=== PATIENT | male | born 1955 | race Caucasian/White ===

== ENCOUNTER 2023-01-28 13:35 | Outpatient (REF) | payer MEDICARE, MEDICAID, SELFPAY ==
[2021-10-02 12:39] VITALS: BP 114/60; BP 150/80; BMI 26.1
[2023-01-28 14:43] LABS: Alanine Aminotransferase 15 U/L (0-40); Albumin Level 4.1 g/dL (3.5-5.0); Alkaline Phosphatase 89 U/L (39-117); Anion Gap 11 (12-20); Aspartate Amino Transferase 25 U/L (5-37); Bilirubin Total 0.8 mg/dL (0.0-1.0); Blood Urea Nitrogen 23 mg/dL (9-16); Calcium 9.5 mg/dL (8.4-10.2); Carbon Dioxide 32 mmol/L (22-29); Chloride 102 mmol/L (96-108); Estimated Glomerular Filt Rate > 60; Glucose Random 112 mg/dL (60-115); Sodium 141 mmol/L (135-145); Total Protein 7.6 g/dL (6.5-8.0)
[2023-01-28 15:08] LABS: Folate 16.3 ng/mL (> or = 4.0); T4 Thyroxine 5.7 ug/dL (4.5-12.0); Thyroid Stimulating Hormone 0.73 uIU/mL (0.32-4.0); Vitamin B12 662 pg/mL (200-900)
== END 2023-01-28 13:36 | disposition home or self-care (01) ==
LOC: HO.LAB 13:35
PROVIDERS: PCP Internal Medicine; Visit Provider Psychiatry & Neurology Neurology
DX: G31.84 Mild cognitive impairment of uncertain or unknown etiology (principal)
CPT/HCPCS: 36415; 80053; 82607; 82746; 84436; 84443

== ENCOUNTER 2023-02-20 17:10 | Emergency (ER) | payer MEDICARE, MEDICAID, SELFPAY ==
[2021-10-02 12:39] VITALS: BP 114/60; BP 150/80; BMI 26.1
--- NOTE | ~2023-02-20 | US_ITS ---
EXAMINATION: US VENOUS ULTRASOUND WITH DOPPLER LOWER EXTREMITY, LEFT CLINICAL INFORMATION: Pain. COMPARISON: None available. TECHNIQUE: Ultrasound of the deep veins is performed from the hip to the calf with compression sonography and color and pulse Doppler assessment. Spectral analysis with color-flow imaging is performed. FINDINGS: There is normal venous compression and respiratory variation and augmented flow. The visualized left common femoral vein, superficial femoral vein, profunda femoral vein, popliteal vein, and the trifurcation region shows no evidence of deep venous thrombosis. There is no significant popliteal fossa cyst. If the patient's symptoms persist, followup ultrasound in 5 days 7 days might be of value to exclude proximal propagation from a non-visualized calf vein. US/US venous duplex LE IMPRESSION: No DVT demonstrated in the left lower extremity.
--- NOTE | ~2023-02-20 | XR_ITS ---
X-RAY LEFT TIBIA/FIBULA X-RAY LEFT ANKLE X-RAY LEFT FOOT CLINICAL HISTORY: Evaluate fracture/osteomyelitis. COMPARISON: No relevant prior studies are available for comparison. TECHNIQUE: 2 views of the left tibia/fibula. 3 views of the left ankle. 3 views of the left foot. FINDINGS: Left tibia/fibula: No acute fracture or subluxation. Enthesophytes at the insertion site of the patellar tendon. No unexpected radiopaque foreign bodies. Left ankle: Age indeterminate osseous fragments adjacent to the medial malleolus. Asymmetric soft tissue thickening adjacent to the medial malleolus. Left foot: No acute fracture or malalignment. Calcaneal spurs. XR/XR tibia fibula LT 2V IMPRESSION: 1. Age-indeterminate osseous fragments adjacent to the medial malleolus with adjacent soft tissue thickening, avulsion fracture is not excluded. Correlate for point tenderness. 2. No destructive appearing abnormalities to suspect osteomyelitis by radiograph, however correlation with an MR could be obtained as clinically indicated.
--- NOTE | ~2023-02-20 | XR_ITS ---
X-RAY LEFT TIBIA/FIBULA X-RAY LEFT ANKLE X-RAY LEFT FOOT CLINICAL HISTORY: Evaluate fracture/osteomyelitis. COMPARISON: No relevant prior studies are available for comparison. TECHNIQUE: 2 views of the left tibia/fibula. 3 views of the left ankle. 3 views of the left foot. FINDINGS: Left tibia/fibula: No acute fracture or subluxation. Enthesophytes at the insertion site of the patellar tendon. No unexpected radiopaque foreign bodies. Left ankle: Age indeterminate osseous fragments adjacent to the medial malleolus. Asymmetric soft tissue thickening adjacent to the medial malleolus. Left foot: No acute fracture or malalignment. Calcaneal spurs. XR/XR foot LT min 3V IMPRESSION: 1. Age-indeterminate osseous fragments adjacent to the medial malleolus with adjacent soft tissue thickening, avulsion fracture is not excluded. Correlate for point tenderness. 2. No destructive appearing abnormalities to suspect osteomyelitis by radiograph, however correlation with an MR could be obtained as clinically indicated.
--- NOTE | ~2023-02-20 | XR_ITS ---
X-RAY LEFT TIBIA/FIBULA X-RAY LEFT ANKLE X-RAY LEFT FOOT CLINICAL HISTORY: Evaluate fracture/osteomyelitis. COMPARISON: No relevant prior studies are available for comparison. TECHNIQUE: 2 views of the left tibia/fibula. 3 views of the left ankle. 3 views of the left foot. FINDINGS: Left tibia/fibula: No acute fracture or subluxation. Enthesophytes at the insertion site of the patellar tendon. No unexpected radiopaque foreign bodies. Left ankle: Age indeterminate osseous fragments adjacent to the medial malleolus. Asymmetric soft tissue thickening adjacent to the medial malleolus. Left foot: No acute fracture or malalignment. Calcaneal spurs. XR/XR ankle LT min 3V IMPRESSION: 1. Age-indeterminate osseous fragments adjacent to the medial malleolus with adjacent soft tissue thickening, avulsion fracture is not excluded. Correlate for point tenderness. 2. No destructive appearing abnormalities to suspect osteomyelitis by radiograph, however correlation with an MR could be obtained as clinically indicated.
--- NOTE | 2023-02-20 17:14 | ED_ITS ---
HPI - Extremity Injury (Lower) General Chief Complaint: Extremity Problem Stated Complaint: fell 02/18 left left swollen Time Seen by Provider: 02/20/23 17:30 Related Data Previous Rx's Medication Instructions Recorded cephalexin 500 mg capsule 500 mg PO QID 7 days #28 caps 02/20/23 ibuprofen 600 mg tablet 600 mg PO Q8H PRN pain #14 tabs 02/20/23 Allergies Allergy/AdvReac Type Severity Reaction Status Date / Time No Known Allergies Allergy Unverified 05/25/20 15:34 [facility] Social History Social History Patient Tobacco Use Status: Former Tobacco user Tobacco use type: Cigarette Cigarette Packs Per Day: 0 Years Smoked: 20 Advance Directives: No Advance Directives Information Provided: No Physical Exam Vital Signs: Vital Signs: Last Vital Signs Temp 98.4 F 02/20/23 17:15 Pulse 91 02/20/23 17:15 Resp 20 02/20/23 17:15 BP 150/91 H 02/20/23 17:15 Pulse Ox 96 02/20/23 17:15 O2 Del Method Room Air 02/20/23 17:15 BMI result Body Mass Index 26.5 Course Course Course Narrative: This is a rapid medical exam. Deferred additional HPI, ROS, PE to primary provider. 67 yo male with history of CAD, achlasia, HTN, FELICIA, HLD falll on Friday with abrasions to LLE from wooden stairs. Now increasing redness/swelling to LLE. No hitting of the head or LOC. VSS Medications Administered Discontinued Medications Generic Name Dose Route Start Last Admin Trade Name Freq PRN Reason Stop Dose Admin Acetaminophen 975 mg 02/20/23 19:05 02/20/23 19:10 Acetaminophen 325 Mg Tablet PO 02/20/23 19:06 975 mg ONCE ONE Administration Diphtheria/Tetanus/Acell Pertussis 0.5 ml 02/20/23 18:51 02/20/23 19:00 Diphth,Pertus(Acell),Tet Adult 0.5 Ml Syringe IM 02/20/23 18:52 0.5 ml .ONCE ONE Administration Discharge Plan Discharge Clinical Impression: Leg pain Patient Disposition: Home, Self-Care Additional Instructions: You have no blood clot in your left leg according to the ultrasound report today. There was a osseous fragment located adjacent to your inner ankle, however you have no tenderness here. This is likely an incidental finding. I am treating you for an underlying skin infection, please complete full course of antibiotics even if your feeling better. Watch for any worsening redness. If you develop any fevers, chills, or any worsening symptoms please return for re-evaluation. Please follow-up with your primary care physician regarding this visit. Call tomorrow to make appointment. If any new or worsening symptoms occur please return for re-evaluation. Prescriptions: New cephalexin 500 mg capsule 500 mg PO QID 7 Days Qty: 28 0RF ibuprofen 600 mg tablet 600 mg PO Q8H PRN (Reason: pain) Qty: 14 0RF
[2023-02-20 17:15] VITALS: BP 150/91; PULSE 91; RESP 20; TEMP 36.9; O2SAT 96; BMI 26.5
--- NOTE | 2023-02-20 18:34 | ED.EXTPRO ---
HPI - Extremity Problem General Chief complaint: Extremity Problem Stated complaint: fell 02/18 left left swollen Time Seen by Provider: 02/20/23 17:30 History of Present Illness HPI Narrative: Patient complains of left ankle and leg pain after a trip and fall several days ago, it is been painful to walk and he comes to the ER The pain is in the lower leg ankle and foot He was demolishing a small stair case in his basement and then the staircase slid down as he removed the bottom steps hitting into his left lower leg He denies any headache neck pain back pain no chest pain no preceding dizziness no syncope no presyncope no confusion no weakness, straight for trip and fall He denies any other injury except the leg injury Related Data Previous Rx's Medication Instructions Recorded cephalexin 500 mg capsule 500 mg PO QID 7 days #28 caps 02/20/23 ibuprofen 600 mg tablet 600 mg PO Q8H PRN pain #14 tabs 02/20/23 Allergies Allergy/AdvReac Type Severity Reaction Status Date / Time No Known Allergies Allergy Unverified 05/25/20 15:34 [facility] Past Medical History Source: nursing notes reviewed Social History Social History Patient Tobacco Use Status: Former Tobacco user Tobacco use type: Cigarette Cigarette Packs Per Day: 0 Years Smoked: 20 Advance Directives: No Advance Directives Information Provided: No Physical Exam Vital Signs: Vital Signs: Last Vital Signs Temp 98.4 F 02/20/23 17:15 Pulse 91 02/20/23 17:15 Resp 20 02/20/23 17:15 BP 150/91 H 02/20/23 17:15 Pulse Ox 96 02/20/23 17:15 O2 Del Method Room Air 02/20/23 17:15 BMI result Body Mass Index 26.5 General appearance no distress Head is normocephalic atraumatic Neck is supple nontender Chest wall is nontender ribs are nontender The back full range of motion no tenderness Extremities have full range of motion x4 including left leg Left ankle is tender and swollen but has good range of motion, the foot dorsum is mildly swollen There is abrasion contusion and ecchymosis on the left anterior vernon and there is tenderness in both lateral and posterior left lower leg, there is erythema around the abrasions Course Course Course Narrative: Patient with injuries to left foot left ankle and left lower leg including posterior leg is pending ultrasound to rule out DVT in left lower leg and x-rays of left lower leg ankle and foot At 19:00 case is signed out to physician administrative assistant data entry [place] to follow studies ultrasound and x-rays and to re-evaluate and dispo patient Redness around abrasions may be an early cellulitis Medications Administered Discontinued Medications Generic Name Dose Route Start Last Admin Trade Name Freq PRN Reason Stop Dose Admin Acetaminophen 975 mg 02/20/23 19:05 02/20/23 19:10 Acetaminophen 325 Mg Tablet PO 02/20/23 19:06 975 mg ONCE ONE Administration Cephalexin HCl 500 mg 02/20/23 22:46 02/20/23 22:52 Cephalexin 500 Mg Capsule PO 02/20/23 22:47 500 mg ONCE ONE Administration Diphtheria/Tetanus/Acell Pertussis 0.5 ml 02/20/23 18:51 02/20/23 19:00 Diphth,Pertus(Acell),Tet Adult 0.5 Ml Syringe IM 02/20/23 18:52 0.5 ml .ONCE ONE Administration Ibuprofen 600 mg 02/20/23 22:46 02/20/23 22:52 Ibuprofen 600 Mg Tablet PO 02/20/23 22:47 600 mg ONCE ONE Administration Discharge Plan Discharge Clinical Impression: Leg pain Patient Disposition: Home, Self-Care Additional Instructions: You have no blood clot in your left leg according to the ultrasound report today. There was a osseous fragment located adjacent to your inner ankle, however you have no tenderness here. This is likely an incidental finding. I am treating you for an underlying skin infection, please complete full course of antibiotics even if your feeling better. Watch for any worsening redness. If you develop any fevers, chills, or any worsening symptoms please return for re-evaluation. Please follow-up with your primary care physician regarding this visit. Call tomorrow to make appointment. If any new or worsening symptoms occur please return for re-evaluation. Prescriptions: New cephalexin 500 mg capsule 500 mg PO QID 7 Days Qty: 28 0RF ibuprofen 600 mg tablet 600 mg PO Q8H PRN (Reason: pain) Qty: 14 0RF Interventions: ED Discharge Assessment Last Done: 02/20/23 23:01 Discharge Date/Time: 02/20/23 23:01
[2023-02-20] MEDS: Diphth,Pertus(ACell),Tet Adult 0.5 ML SYRINGE IM (19:00)
[2023-02-20] MEDS: Acetaminophen 325 MG TABLET 975 MG PO (19:10)
[2023-02-20] MEDS: cephALEXin 500 MG CAPSULE PO (22:52)
[2023-02-20] MEDS: Ibuprofen 600 MG TABLET PO (22:52)
== END 2023-02-20 23:01 | disposition home or self-care (01) ==
PROVIDERS: Emergency Provider Emergency Medicine Emergency Medical Services; PCP Internal Medicine
DX: S90.512A Abrasion, left ankle, initial encounter (principal); R60.0 Localized edema; M79.662 Pain in left lower leg; M79.672 Pain in left foot; X58.XXXA Exposure to other specified factors, initial encounter; Y93.9 Activity, unspecified; Y92.89 Other specified places as the place of occurrence of the external cause; Y99.9 Unspecified external cause status; Z79.899 Other long term (current) drug therapy
CPT/HCPCS: 73590; 73610; 73630; 90471; 90715; 93971; 99284